=== PATIENT | male | born 1965 | race Caucasian/White ===

== ENCOUNTER 2024-12-10 18:20 | Inpatient (IN) | payer BC, SELFPAY ==
[2024-12-10] VITALS (12 sets, daily range): BP systolic 128–144; BP diastolic 71–89; BMI 28.5
[2024-12-10] MEDS: NORMOSOL-R/PLASMALYTE-A 1000 IV (13:46)
--- NOTE | 2024-12-10 18:00 | OR.RPT ---
Operative Report
Operative Report
Anesthesia Type:
General
Operative Indications:
Left lateral tibial plateau fracture with significant depression
Operative Findings :
Same
Complications:
None
Implants:
[place] AXSOS3 proximal lateral tibial locking plate
Procedure and Technique:
Open reduction internal fixation left lateral tibial plateau fracture
INDICATIONS FOR PROCEDURE:
Patient is an active 59-year-old male who sustained a injury while skiing. He is subsequently diagnosed with a lateral tibial plateau fracture. CT scan was performed that showed significant depression with nondisplaced split. I had a long
discussion the patient regarding diagnosis and treatment options. Discussed postsurgical nonsurgical options. Given clinical instability, significant depression and his activity level, patient elected to proceed with open reduction internal
fixation lateral tibial plateau fracture. We discussed risks benefits and alternatives to surgery. We discussed the usual and expected perioperative and postoperative course. After discussion written informed consent was obtained
OPERATIVE PROCEDURE:
Patient was seen and identified in the preoperative holding area. Operative extremities marked. All questions were addressed and answered. He was taken to the operating room where general anesthesia was administered. Exam under anesthesia did
note some instability with valgus stress of the knee. nonsterile tourniquet was applied but was not inflated during the case. Operative extremity was prepped and draped in normal sterile fashion. Timeout was performed again identifying correct
operative extremity. Preoperative antibiotics were addressed. Orthogonal fluoroscopic imaging confirmed predominantly depressed lateral tibial plateau fracture. Standard anterolateral approach to the knee was taken. Sharp dissection was carried
through skin subcutaneous tissues and deep fascial layer. Electrocautery was used for hemostasis. IT band was elevated off Bella's tubercle. Submeniscal arthrotomy was performed and direct visualization of depressed fracture was obtained. There
was noted to be peripheral meniscus tear that was repaired at the end of the case. A cortical window was made and tamp was utilized to elevate the depressed articular margin. Cancellous allograft bone chips were then placed through the cortical
window. Improved depression was noted both visually as well as on fluoroscopic imaging. K wires were utilized to stabilize elevation. Proximal lateral locking plate was then placed appropriate position confirmed on fluoroscopic guidance. 2
bicortical nonlocking screws were placed distally to buttress the nondisplaced split fracture. Multiple locking rafting screws were then placed of appropriate length. Kickstand screw was then placed. Final fluoroscopic imaging confirmed improved
reduction of the lateral articular margin. Satisfied with extent surgery wound was copiously irrigated normal saline solution. The meniscus was repaired to the plate utilizing 0 PDS suture. Wound was closed in a layered fashion utilizing 0 Vicryl
for deep fascial layer, 2-0 Vicryl for subcutaneous layer and emmy for skin. Sterile dressing was applied consisting of Xeroform, 4 x 4 gauze, ABD, Webril Negrito bandage. Patient was placed in a knee immobilizer. Postoperative plans include
nonweightbearing to the operative extremity. I will initiate early range of motion. Plan to see patient back 2 weeks postoperatively for planned removal of emmy.
Disposition:
PACU stable condition
[2024-12-10] MEDS: DILAUDID 0.5 MG IV ×2 (18:25→18:36)
[2024-12-10] MEDS: COLACE 100 MG PO (21:19)
[2024-12-10] MEDS: TYLENOL 650 MG PO (21:19)
[2024-12-10] MEDS: ROXICODONE 10 MG PO (21:19)
[2024-12-10] MEDS: SENOKOT 17.2 MG PO (21:19)
[2024-12-10] MEDS: ZETIA 10 MG PO (21:19)
[2024-12-10] MEDS: ANCEF 5 IV (21:20)
[2024-12-11] MEDS: TYLENOL PO (00:20)
--- NOTE | 2024-12-11 00:42 | PTCARENOTE ---
19:30 pt rec;vd from PACU , left brace in place to LLE and is non wt bearing. at the bedside,pt vs WNL, pain tolerable per pt. Pt oriented to unit.
[2024-12-11 03:10] VITALS: BP 135/70
[2024-12-11] MEDS: TYLENOL 650 MG PO ×3 (04:20→11:39)
[2024-12-11] MEDS: ROXICODONE 10 MG PO (04:20)
[2024-12-11] MEDS: ANCEF 5 IV (05:43)
[2024-12-11 07:05] VITALS: BP 136/78
--- NOTE | 2024-12-11 07:49 | W.PN.ORTHO ---
Today's Communication / Plan
-
59-year-old male postop day 1 status post open reduction term fixation left lateral tibial plateau fracture doing well
Nonweightbearing left lower extremity in knee immobilizer, okay for passive and active range of motion
PT OT
Pain control
DVT prophylaxis: Lovenox while in-house, discharged on 81 mg aspirin twice daily for 30 days
Disposition: Discharge home today pending PT evaluation
Subjective
.
.:
Patient resting comfortably in bed this morning. Pain well-controlled. Able to tolerate p.o. pain medications only this morning.
Vital Signs and Labs
.
Vital Signs and Labs:
Temp Pulse Resp BP Pulse Ox
98.3 F 79 17 135/70 97
12/11/24 03:10 12/11/24 03:10 12/11/24 03:10 12/11/24 03:10 12/11/24 03:10
Physical Exam
-
Musculoskeletal left lower extremity
Dressing in place without bloody drainage, knee immobilizer in place
Positive EHL, FHL, ankle dorsiflexion, plantarflexion
Sensation tact light touch in all dispositions distally
Brisk cap refill distally
--- NOTE | 2024-12-11 07:52 | W.DCSUMMARY ---
Discharge Summary
Discharge Data
Date of Admission: 12/10/24
Date of Discharge: 12/12/24
-
Pending Results: No
Hospital Course
59-year-old male who is indicated for open reduction terminal fixation left lateral tibial plateau fracture. He underwent uneventful surgery was admitted for observation overnight. Pain was well-controlled on oral pain medications. He worked
with physical therapy and was able to ambulate safely for discharge home. He did receive Lovenox for DVT prophylaxis while in house. He was discharged on 81 mg aspirin twice daily for DVT prophylaxis for 30 days. Will plan to see patient back in
the office in 2 weeks.
Discharge Plan
-
Patient Disposition: Home (Routine Discharge)
Diet: No restrictions and As tolerated
Activity: Do not bear weight L leg
Driving Restrictions: Not until seen by your Dr
Bathing Restrictions: After dressing removed
Wound Care: Leave dressings in place for 5 days. OK to remove to shower after dressing removal. Please keep wound covered and dry until follow up.
Activity Restrictions/Additional Instructions:
Non weight bearing left lower extremity in KI, ok for passive and active knee range of motion
Referrals:
John Quinones MD [Family Provider] -
Prescriptions:
Continued
atorvastatin 10 mg Tablet
10 mg PO QPM
ibuprofen [Advil] 200 mg Tablet
600 mg PO Q6H PRN (Reason: pain)
allopurinol 300 mg Tablet
300 mg PO 1600
ezetimibe 10 mg Tablet
10 mg PO HS
Discharge Orders:
Discharge Patient (As Directed); Ordered 12/11/24
Ordered By: Socrates Flores
Discharge Date and Time
Discharge Date/Time: 12/11/24 12:43
Print Language: KAZAKH
[2024-12-11] MEDS: COLACE PO (07:58)
[2024-12-11] MEDS: SENOKOT PO (07:58)
[2024-12-11 10:25] VITALS: BP 121/80; PULSE 79; O2SAT 97
[2024-12-11 10:36] VITALS: BP 121/80; PULSE 79; O2SAT 97
--- NOTE | 2024-12-11 10:59 | CM ---
Met with pt at bedside
Pt reports he lives with his and son in a 2 story home; 2 steps to enter, 12 steps to 2nd fl - has 1/2 bath on FF
Independent at baseline, employed, drives
DME - crutches, shower chair
SNF/HH - denies past hx
Has ride at discharge
PCP - John Quinones
Pharm - [facility] on [facility]
PT/OT - evals completed - no needs
Plan - home with family assist
[2024-12-11 11:00] VITALS: BP 148/84
[2024-12-11] MEDS: ROXICODONE 5 MG PO (11:39)
== END 2024-12-11 12:43 | disposition home or self-care (01) | DRG 494 ==
LOC: 2 SOUTH 18:20
PROVIDERS: ADMITTING PHYSICIAN Orthopaedic Surgery; FAMILY PHYSICIAN Family Medicine
PROC: 0QSH04Z Reposition Left Tibia with Internal Fixation Device, Open Approach (ICD-10-PCS; 2024-12-10)
DX: S82.142A Displaced bicondylar fracture of left tibia, initial encounter for closed fracture (principal); Y93.23 Activity, snow (alpine) (downhill) skiing, snowboarding, sledding, tobogganing and snow tubing; V00.328A Other snow-ski accident, initial encounter
CPT/HCPCS: 73560; 76000; 97116; 97163; 97166; 97535; C1713